=== PATIENT | male | born 1995 | race Caucasian/White ===

== ENCOUNTER 2024-03-18 00:07 | Emergency (ER) | payer MEDICAID ==
[~2024-03-18] VITALS: Ht 188 cm; Wt 88.0 kg
[2024-03-18 00:21] VITALS: TEMP 98.1; O2SAT 100
[2024-03-18] MEDS: MAGNESIUM/ALUMINUM HYDROXIDE/SIMETHICONE 30ML UDC PO ONE (00:30)
[2024-03-18] MEDS: ACETAMINOPHEN 325MG TABLET PO ONE (00:30)
[2024-03-18] MEDS: GUAIFENESIN 600MG ER TABLET PO SCH (00:30)
[2024-03-18] MEDS: MAGNESIUM/ALUMINUM HYDROXIDE/SIMETHICONE 30ML UDC PO NR (05:18)
[2024-03-18] MEDS: ACETAMINOPHEN 325MG TABLET PO NR (05:19)
[2024-03-18] MEDS ORDERED: ACET-2708 MT (05:26)
[2024-03-18] MEDS ORDERED: METH4TAB95 MT (05:26)
[2024-03-18 05:51] VITALS: BP 154/99; PULSE 85; RESP 16; O2SAT 99
== END 2024-03-18 05:51 | disposition home or self-care (01) ==
LOC: ER 00:26
DX: B34.9 Viral infection, unspecified (principal); F17.200 Nicotine dependence, unspecified, uncomplicated; I10 Essential (primary) hypertension; Z20.822 Contact with and (suspected) exposure to COVID-19
CPT/HCPCS: 71045; 87426; 87804; 99284

== ENCOUNTER 2024-12-24 09:01 | Emergency (ER) | payer OTHER ==
[~2024-12-24] VITALS: Ht 193 cm; Wt 85.0 kg
[~2024-12-24 09:01] MED LIST: ACET-2708 MT; METH4TAB95 MT
[2024-12-24 09:24] VITALS: O2SAT 99
[2024-12-24 09:44] LABS: BASOPHILS % 0.7 % (0.0-2.0); EOSINOPHILS % 2.6 % (0.0-5.0); HEMATOCRIT. 42.5 % (42.0-52.0); HEMOGLOBIN. 14.2 g/dL (14.0-18.0); LYMPHOCYTES % 17.6 % (20.0-50.0); MEAN PLATELET VOLUME 9.4 fl (7.4-10.4); MONOCYTES % 4.8 % (2.0-8.0); NEUTROPHILS % 74.3 % (40.0-76.0); PLATELET 180 x1000/uL (130-400); RED BLOOD CELL COUNT 5.18 mill/uL (4.7-6.1); RED CELL DISTRIBUTION WIDTH 14.0 % (11.6-14.6)
[2024-12-24 09:58] LABS: CREATININE 1.1 mg/dL (0.6-1.3); UREA NITROGEN BLOOD 9 mg/dL (9-23)
[2024-12-24] MEDS ORDERED: IBUP-1455 MT (10:44)
[2024-12-24] MEDS: KETOROLAC 30MG/ML VIAL IM ONE (10:55)
[2024-12-24 10:57] VITALS: BP 148/94; PULSE 72; RESP 16; TEMP 36.7; O2SAT 99
== END 2024-12-24 11:05 | disposition home or self-care (01) ==
LOC: ER 09:01
DX: J06.9 Acute upper respiratory infection, unspecified (principal); R59.1 Generalized enlarged lymph nodes; I10 Essential (primary) hypertension; Z79.899 Other long term (current) drug therapy
CPT/HCPCS: 99283; 80048; 85025; 36415; 96372; J1885